=== PATIENT | female | born 1935 | race Caucasian/White ===

== ENCOUNTER → 2020-08-14 11:54 | Outpatient (CLI) | payer MEDICARE, SELFPAY ==
--- NOTE | ~2020-08-14 | US_ITS ---
EXAMINATION: US thyroid EXAM DATE: 08/14/2020 12:21 INDICATION: Thyroid nodule follow-up. TECHNIQUE: Multiple grayscale and Doppler images of the thyroid were obtained (by a technologist who performed the scan) and subsequently reviewed. Individual nodules and recommendations may be reporte d in accordance with TI-RADS system as designated by the 2017 ACR White Paper TI-RADS committee. The re is no prior study for comparison. FINDINGS: The right thyroid lobe measures 6.1 x 2.4 x 3.4 cm, the left measures 4.5 x 1.4 x 1.5 cm. Multiple sc attered thyroid nodules are present. Heterogeneous thyroid echogenicity overall. Following nodule is by far the largest, in the right thyroid lobe measuring 4.3 x 2.4 x 3.3 cm centim eters, solid (2 points), hypoechoic (2 points), wider than tall, smooth margin, without echogenic foc i, category TR4 for this nodule. Reportedly patient did have a thyroid biopsy, likely would have bee n of this nodule given at the other thyroid nodules are one centimeters or less. Correlate with those results. There are no prior studies available at this time for comparison. IMPRESSION: 1. Multinodular goiter. 2. Right thyroid lobe 4 cm nodule, reportedly previously biopsied. Reviewed, dictated and finalized at location A.
== END ==
PROVIDERS: PCP Student in an Organized Health Care Education/Training Program; Visit Provider Student in an Organized Health Care Education/Training Program
DX: E04.2 Nontoxic multinodular goiter (principal)
CPT/HCPCS: 76536

== ENCOUNTER → 2020-09-03 17:46 | Outpatient (CLI) | payer MEDICARE, SELFPAY ==
--- NOTE | ~2020-09-03 | MM_ITS ---
EXAMINATION: MM screening dulce BI w reji HISTORY: Screening TECHNIQUE: Craniocaudal and mediolateral oblique 3-D tomosynthesis images were obtained and synthetic 2-D images were generated. CAD analysis was submitted and interpreted. COMPARISON: No prior mammogram is available for comparison at this institution. BREAST PARENCHYMAL COMPOSITION: There are scattered areas of fibroglandular density. FINDINGS: There is no evidence of suspicious mass, calcification, or architectural distortion to sugg est malignancy in either breast. There has been no suspicious interval change. IMPRESSION: 1. No mammographic evidence of malignancy. 2. Recommend routine screening mammography in one year. BI-RADS Category 1: Negative Reviewed, dictated and finalized at location A.
== END ==
PROVIDERS: Visit Provider Student in an Organized Health Care Education/Training Program
DX: Z12.31 Encounter for screening mammogram for malignant neoplasm of breast (principal)
CPT/HCPCS: 77063; 77067

== ENCOUNTER → 2021-12-21 11:26 | Outpatient (CLI) | payer MEDICARE, SELFPAY ==
--- NOTE | ~2021-12-21 | US_ITS ---
EXAMINATION: US thyroid DATE: 12/21/2021 11:59 INDICATION: Thyroid nodule. TECHNIQUE: Multiple ultrasound images of the thyroid were obtained. COMPARISON: Thyroid ultrasound 08/14/2020 FINDINGS: The right thyroid lobe measures 5.8 x 3.0 x 3.2 cm. The left thyroid lobe measures 3.8 x 1.7 x 1.6 c m. The thyroid demonstrates heterogeneous echogenicity and increased vascularity. In the right thyroi d lobe, there is a 4.3 cm solid, hypoechoic, eedad-witk-flgf nodule with smooth margin without echoge pa foci (TI-RADS TR4). In the left thyroid lobe, there is an 11 mm mixed cystic and solid, hypoechoi c, vriqz-ctab-[id number] nodule with lobulated margin without echogenic foci (TR4). In the left thyroid lob e, there is a 1.1 cm solid, hypoechoic, ihdzu-iurj-jzhk and tall nodule with smooth margin without ec hogenic foci (TR4). IMPRESSION: 1. Multinodular goiter, stable from 08/14/2020. By report, previous biopsy of the right thyroid nodule was benign. Given the patient's age, follow-up imaging is likely not needed. 2. 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 Reviewed, dictated and finalized at location A. NICAL CLERK IMPRESSION: 1. Multinodular goiter, stable from 08/14/2020. By report, previous biopsy of th e right thyroid nodule was benign. Given the patient's age, follow-up imaging i s likely not needed. 2. 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
== END ==
PROVIDERS: PCP Student in an Organized Health Care Education/Training Program; Visit Provider Student in an Organized Health Care Education/Training Program
DX: E04.2 Nontoxic multinodular goiter (principal)
CPT/HCPCS: 76536